=== PATIENT | male | born 1985 | race African-American/Black ===

== ENCOUNTER → 2018-10-30 | Outpatient (CLI) | payer OTHER ==
--- NOTE | 2018-10-30 12:41 | KCIC ---
EXAM: Lumbar spine MRI without contrast. HISTORY: Chronic lower back pain. TECHNIQUE: Multiplanar, multisequence magnetic resonance imaging of the lumbar spine was performed without contrast. COMPARISON: None. FINDINGS: There is no listhesis. The vertebral bodies are normal in height. There is degenerative endplate remodeling with disc desiccation and disc space narrowing at L5-S1. There is additional anterior superior endplate remodeling at L1 and L2. The conus terminates at L1. There is no suspicious osseous lesion. At L1-L2, L2-L3, L3-L4 and L4-L5, there is no stenosis. At L5-S1, there is a posterior central disc protrusion and annular tear and there are bilateral extra foraminal to lateral disc osteophyte complexes superimposed on a disc bulge and endplate remodeling. There is mild bilateral foraminal stenosis with abutment of the exiting left greater than right L5 nerve roots. IMPRESSION: Degenerative change at L5-S1, resulting in mild bilateral foraminal stenosis with abutment of the exiting left greater than right L5 nerve roots. Electronically signed by: Kelsey Pineda MD (10/30/2018 12:38 PM) [id number]
== END | disposition home or self-care (01) ==
LOC: KCIC MRI 10:54
PROVIDERS: ATTEND Family Medicine Sports Medicine
DX: M51.37 Other intervertebral disc degeneration, lumbosacral region (principal); M51.27 Other intervertebral disc displacement, lumbosacral region; M48.061 Spinal stenosis, lumbar region without neurogenic claudication; M25.78 Osteophyte, vertebrae; M48.07 Spinal stenosis, lumbosacral region; G89.29 Other chronic pain
CPT/HCPCS: 72148